=== PATIENT | male | born 1980 | race African-American/Black ===

== ENCOUNTER 2016-11-26 06:16 | Emergency (ER) | payer MEDICAID ==
[~2016-11-26] VITALS: Ht 182.9 cm; Wt 109.0 kg
[~2016-11-26 06:16] MED LIST: ALBU17AE26
[2016-11-26] MEDS ORDERED: KETOROLAC 60MG/2ML VIAL IM ONE (07:45)
[2016-11-26 10:04] VITALS: BP 162/96
== END 2016-11-26 10:09 | disposition home or self-care (01) ==
LOC: ER 06:18
DX: S46.911A Strain of unspecified muscle, fascia and tendon at shoulder and upper arm level, right arm, initial encounter (principal); J45.909 Unspecified asthma, uncomplicated; X58.XXXA Exposure to other specified factors, initial encounter; Y93.89 Activity, other specified; Y92.89 Other specified places as the place of occurrence of the external cause; Y99.8 Other external cause status
CPT/HCPCS: 96372; 99283; J1885; Z7610